=== PATIENT | female | born 1970 | race Caucasian/White ===

== ENCOUNTER 2017-01-10 09:02 | Emergency (ER) | payer OTHER ==
[~2017-01-10] VITALS: Ht 160 cm; Wt 149.1 kg
[~2017-01-10 09:02] MED LIST: BENADRYL50 MG PO; MOTRIN600 MG PO; NAPROSYN500 MG PO; PEPCID20 MG PO; PREDNISONE20 MG PO
[2017-01-10] MEDS ORDERED: PREDNISONE50 MG PO (10:25)
[2017-01-10] MEDS ORDERED: PROAIR HFA8.5 GM IH (10:25)
[2017-01-10] MEDS ORDERED: ZITHROMAX Z-PA250 MG PO (10:26)
[2017-01-10 11:13] VITALS: BP 91/67
== END 2017-01-10 11:14 | disposition home or self-care (01) ==
LOC: EME 09:02
DX: J20.9 Acute bronchitis, unspecified (principal); R06.2 Wheezing
CPT/HCPCS: 71020; 94640; 94760; 99281; 99284; J7512

== ENCOUNTER 2017-01-13 16:04 | Observation (INO) | payer OTHER ==
[~2017-01-13] VITALS: Ht 160 cm; Wt 150.0 kg
[~2017-01-13 16:04] MED LIST changes: +PREDNISONE50 MG PO; +PROAIR HFA8.5 GM IH; +ZITHROMAX Z-PA250 MG PO
[2017-01-13 19:00] VITALS: BP 125/77
[2017-01-13 20:02] LABS: EOSINOPHIL (%) 0 % (0-5); HEMATOCRIT 38.9 % (36.0-46.0); IMMATURE GRANULOCYTE (%) 1.3 % (0.0-0.7); IMMATURE GRANULOCYTE COUNT 0.1 K/uL; INSTRUMENT ABS NEUTROPHIL CT 8.6 K/uL; LYMPHOCYTE COUNT 0.9 K/uL (1.0-2.8); MCH 28.4 PG (29.0-34.0); MCHC 31.9 G/DL (30.0-36.0); MCV 89.2 FL (83-99); MEAN PLAT.VOLUME 9.2 uM^3 (9.5-12.4); MONOCYTE (%) 0.9 % (3-12); MONOCYTE COUNT 0.1 K/uL (0-0.8); NEUTROPHIL (%) 88.8 % (45-76); NEUTROPHIL COUNT 8.6 K/uL (1.8-6.4); PLATELET COUNT 310 K/uL (156-360); RBC DIS.WIDTH-CV 13.1 % (11.8-14.6); RBC DIS.WIDTH-SD 43.3 % (39-53); RED BLOOD COUNT 4.36 M/uL (3.80-5.20); WHITE BLOOD COUNT 9.7 K/uL (4.1-10.2)
[2017-01-13 20:15] LABS: CHLORIDE 105 mEq/L (99-109); SODIUM 137 mEq/L (136-147)
[2017-01-13 20:16] LABS: GLUCOSE 181 mg/dL (70-99)
[2017-01-13 20:18] LABS: ANION GAP 12 MEQ/L (2-14)
[2017-01-13 20:20] LABS: GFR ESTIMATE (CALCULATED) > 59 mL/min/
[2017-01-13 20:21] LABS: UREA NITROGEN (BUN) 25 mg/dL (9-23)
[2017-01-13] MEDS ORDERED: AZITHROMYCIN250 MG PO (22:40)
[2017-01-13] MEDS ORDERED: PREDNISONE50 MG PO (22:41)
[2017-01-13 22:44] LABS: Estimated Average Glucose 120 mg/dL (70-123); HEMOGLOBIN A1c (GLYCOHEMOGLOB) 5.8 % HGB (Below 5.7)
[2017-01-13 23:21] VITALS: BP 148/90
[2017-01-14 03:53] VITALS: BP 153/82
[2017-01-14 08:20] VITALS: BP 133/80
[2017-01-14 12:18] VITALS: BP 145/79
[2017-01-14 16:39] VITALS: BP 145/80
[2017-01-14 19:14] VITALS: BP 135/78
[2017-01-14 23:24] VITALS: BP 135/77
[2017-01-15 03:13] VITALS: BP 137/72
[2017-01-15 07:24] VITALS: BP 131/75
[2017-01-15 07:38] LABS: EOSINOPHIL (%) 0 % (0-5); IMMATURE GRANULOCYTE (%) 1.6 % (0.0-0.7); IMMATURE GRANULOCYTE COUNT 0.3 K/uL; INSTRUMENT ABS NEUTROPHIL CT 13.5 K/uL; MCH 28.8 PG (29.0-34.0); MCHC 32.9 G/DL (30.0-36.0); MCV 87.6 FL (83-99); MEAN PLAT.VOLUME 9.2 uM^3 (9.5-12.4); MONOCYTE (%) 2.1 % (3-12); MONOCYTE COUNT 0.3 K/uL (0-0.8); NEUTROPHIL (%) 84.1 % (45-76); NEUTROPHIL COUNT 13.5 K/uL (1.8-6.4); PLATELET COUNT 300 K/uL (156-360); RBC DIS.WIDTH-CV 13.1 % (11.8-14.6); RBC DIS.WIDTH-SD 41.9 % (39-53); RED BLOOD COUNT 4.34 M/uL (3.80-5.20)
[2017-01-15 07:58] LABS: ANION GAP 9 MEQ/L (2-14); CHLORIDE 101 MEQ/L (99-109); GFR ESTIMATE (CALCULATED) > 59 mL/min/; GLUCOSE 135 mg/dL (70-99); POTASSIUM 4.4 MEQ/L (3.7-5.4); SAMPLE HEMOLYSIS CHECK 0; SAMPLE ICTERIC CHECK 0; SAMPLE LIPEMIA CHECK 0; SODIUM 136 MEQ/L (136-147); UREA NITROGEN (BUN) 22 mg/dL (9-23)
[2017-01-15 08:07] LABS: WHITE BLOOD COUNT 16.1 K/uL (4.1-10.2)
[2017-01-15 12:16] VITALS: BP 121/73
[2017-01-15] MEDS ORDERED: LEVOFLOXACIN750 MG PO (14:11)
[2017-01-15] MEDS ORDERED: PREDNISONE50 MG PO (15:26)
== END 2017-01-15 16:16 | disposition home or self-care (01) ==
LOC: EME 16:04 → EXP 16:04 → 2EAST 21:19 → EDOF 21:19 → 2EAST 23:15
PROVIDERS: Internal Medicine; Physician Assistant
DX: J20.8 Acute bronchitis due to other specified organisms (principal); R73.03 Prediabetes
CPT/HCPCS: 71020; 80048; 81003; 83036; 85025; 94640; 94640 76; 99202; 99281; 99285; G0378; J1650; J2930; J7512

== ENCOUNTER 2017-03-12 02:29 | Emergency (ER) | payer OTHER ==
[~2017-03-12] VITALS: Ht 160 cm; Wt 151.0 kg
[~2017-03-12 02:29] MED LIST changes: +AZITHROMYCIN250 MG PO; +LEVOFLOXACIN750 MG PO
[2017-03-12 04:23] VITALS: BP 161/87
== END 2017-03-12 04:24 | disposition home or self-care (01) ==
LOC: EME 02:29
DX: G43.909 Migraine, unspecified, not intractable, without status migrainosus (principal)
CPT/HCPCS: 99281; 99284; J0780; J1100; J1200; J1885; J7030

== ENCOUNTER 2017-04-05 12:54 | Emergency (ER) | payer OTHER ==
[~2017-04-05] VITALS: Ht 160 cm; Wt 151.8 kg
[2017-04-05] MEDS ORDERED: MOTRIN800 MG PO (14:02)
[2017-04-05 14:22] VITALS: BP 131/90
== END 2017-04-05 14:22 | disposition home or self-care (01) ==
LOC: EME 12:54 → RME 12:54
DX: S63.501A Unspecified sprain of right wrist, initial encounter (principal); W01.0XXA Fall on same level from slipping, tripping and stumbling without subsequent striking against object, initial encounter; Y92.512 Supermarket, store or market as the place of occurrence of the external cause; Y93.01 Activity, walking, marching and hiking
CPT/HCPCS: 73110; 99281; 99283

== ENCOUNTER → 2017-11-28 | Outpatient (CLI) | payer OTHER ==
[~2017-11-28] MED LIST changes: +MOTRIN800 MG PO
== END | disposition home or self-care (01) ==
LOC: CDC 14:42
DX: I51.7 Cardiomegaly (principal); R94.31 Abnormal electrocardiogram [ECG] [EKG]; M79.641 Pain in right hand
CPT/HCPCS: 93000

== ENCOUNTER 2018-05-13 14:29 | Emergency (ER) | payer OTHER ==
[~2018-05-13] VITALS: Ht 160 cm; Wt 167.9 kg
[2018-05-13] MEDS ORDERED: MOTRIN800 MG PO (16:34)
[2018-05-13 16:50] VITALS: BP 154/87
== END 2018-05-13 16:55 | disposition home or self-care (01) ==
LOC: EME 14:29
DX: M79.671 Pain in right foot (principal)
CPT/HCPCS: 73630; 99281; 99284; J1885